=== PATIENT | male | born 1985 | race Caucasian/White ===

== ENCOUNTER 2017-12-18 20:09 | Emergency (ER) | payer MEDICAID, OTHER ==
[~2017-12-18] VITALS: Ht 193 cm; Wt 90.0 kg
[~2017-12-18 20:09] MED LIST: CEPH-419 PO; HYDR1TAB PO; NO HOME MEDS
[2017-12-18 20:22] VITALS: BP 125/69
[2017-12-18] MEDS ORDERED: CEPH500C5 PO (21:36)
== END 2017-12-18 21:28 | disposition home or self-care (01) ==
LOC: ER 20:10
DX: S52.692A Other fracture of lower end of left ulna, initial encounter for closed fracture (principal); F12.90 Cannabis use, unspecified, uncomplicated; Z79.2 Long term (current) use of antibiotics; Z79.899 Other long term (current) drug therapy; W22.8XXA Striking against or struck by other objects, initial encounter; Y93.89 Activity, other specified; Y92.89 Other specified places as the place of occurrence of the external cause; Y99.8 Other external cause status
CPT/HCPCS: 29105; 99284